=== PATIENT | female | born 1980 | race Caucasian/White ===

== ENCOUNTER 2019-11-09 15:52 | Outpatient (CLI) | payer OTHER, SELFPAY ==
--- NOTE | ~2019-11-09 | CT_ITS ---
EXAMINATION: CT sinus wo con DATE: 11/09/2019 16:33 INDICATION: Chronic congestion, chronic sinusitis TECHNIQUE: Computed tomography (CT) of the paranasal sinuses was performed without contrast. Iterativ e reconstruction technique was employed. Exam dose: 253.85 mGy-cm total exam DLP. COMPARISON: None FINDINGS: Leftward deviation of the nasal septum. Interlamellar cell and jas bullosa of both middle nasal turbinates. The right middle and inferior nasal turbinates are asymmetrically prominent in size. The ostiomeatal units are patent bilaterally. The paranasal sinuses are normally developed and aerated. No mucoperiosteal thickening, mucous retent ion cyst or polyp or soft tissue mass lesion is evident. The mastoid air cells are normally developed and aerated bilaterally. Middle and inner ear apparatus appear normal bilaterally. IMPRESSION: Leftward deviation of nasal septum Interlamellar cell and jas bullosa of both middle nasal turbinates Asymmetric soft tissue swelling of the right middle and inferior nasal turbinates Patent ostiomeatal units, paranasal sinuses, mastoid air cells Reviewed, dictated and finalized at [facility]. Reviewed, dictated and finalized at [facility]. IMPRESSION: Leftward deviation of nasal septum Interlamellar cell and jas bullosa of both middle nasal turbinates Asymmetric soft tissue swelling of the right middle and inferior nasal turbinat es Patent ostiomeatal units, paranasal sinuses, mastoid air cells
== END 2019-11-09 15:53 | disposition home or self-care (01) ==
LOC: ANHIMG 15:53
PROVIDERS: Visit Provider Otolaryngology
DX: J32.9 Chronic sinusitis, unspecified (principal); J34.2 Deviated nasal septum; J34.89 Other specified disorders of nose and nasal sinuses; J34.3 Hypertrophy of nasal turbinates
CPT/HCPCS: 70486

== ENCOUNTER 2023-03-12 08:27 | Emergency (ER) | payer OTHER, SELFPAY ==
--- NOTE | ~2023-03-12 | XR_ITS ---
XR lumbar spine 2-3V 03/12/2023 08:53 Indication: Low back pain for 5 days Procedure: 3 views lumbar spine Comparison: 07/29/2015 Findings: Vertebral body heights are maintained. There is mild disc narrowing and facet hypertrophy a t L5-S1. No fracture or traumatic malalignment. Pedicles intact. Sacral foramen are symmetric. Impression: 1: No acute abnormality of the lumbar spine. 2: Mild lumbar spondylosis. Reviewed, dictated and finalized at [facility]. ERCIAL DECORATOR Impression: 1: No acute abnormality of the lumbar spine. 2: Mild lumbar spondylosis.
[2023-03-12 08:35] VITALS: BP 134/75; PULSE 86; RESP 16; TEMP 36.1; O2SAT 97
--- NOTE | 2023-03-12 08:35 | ED.BACK ---
HPI - Back Pain/Injury General Chief Complaint: Back Pain/Injury Stated Complaint: Low Back Pain Time Seen by Provider: 03/12/23 08:35 Source: patient Mode of arrival: ambulatory Limitations: no limitations History of Present Illness HPI Narrative: 42 yo F presentes with c/o low back pain for 5 to 6 days. Taking ibuprofen and tylenol with relief of symptoms. Denies injury. Works from home and sits 8 hour days. reports tighening and spasm center of lower back. no urinary symptoms. having normal BMs. ambulatory With steady gait. All systems reviewed and negative except as noted above. Related Data Allergies Allergy/AdvReac Type Severity Reaction Status Date / Time butalamine Allergy Intermediate Unknown Verified 03/12/23 08:32 Review of Systems Review of Systems: CONSTITUTIONAL: Denies fever, chills, or sweats. EYES: Denies visual changes, redness, or discharge. ENT: Denies rhinorrhea, congestion, sore throat, or otalgia. CARDIOVASCULAR: Denies chest pain, palpitations, or edema. RESPIRATORY: Denies cough or dyspnea. GASTROINTESTINAL: Denies abdominal pain, nausea, vomiting, or diarrhea. GENITOURINARY: Denies dysuria or hematuria. SKIN: Denies rash or itching. MUSCULOSKELETAL: Reports low back pain. Denies joint pain, or myalgia. NEUROLOGIC: Denies headache, numbness, or weakness. PSYCHIATRIC: Denies anxiety or depression. All other systems reviewed are negative, except as documented in HPI. PMFSH Comments At time of signature, agree with nursing past medical, surgical, social and family history. There is no relevant family history pertinent to the presenting complaint. Exam Narrative: GENERAL: This is a well-nourished, well-developed patient, in no apparent distress. HEAD: normocephalic, atraumatic. EYES: PERRL. Sclera clear/white. Vision is grossly intact. EARS: External ears normal NOSE: External nose normal NECK: Neck supple, non-tender without lymphadenopathy, masses or thyromegaly. CARDIOVASCULAR: Regular rate and rhythm without murmurs, gallops, or rubs. RESPIRATORY: Clear to auscultation. Breath sounds equal bilaterally. No wheezes, rales, or rhonchi. SKIN: warm, Dry, intact with no suspicious lesions or rash, good texture and turgor. NEURO: awake, alert, and oriented to person, place and time. There were no obvious focal neurologic abnormalities. EXTREMITIES: No joint tenderness, effusion, or edema noted. BACK: muscular tenderness lumbar aspect with tenderness to L 4, L5. Negative straight leg raise. Lower extremity strength 5/5 bilaterally. Course Course Level of Care: Express Care Visit Vital Signs Vital signs: Vital Signs Temperature 36.1 C L 03/12/23 08:35 Pulse Rate 86 03/12/23 08:35 Respiratory Rate 16 03/12/23 08:35 Blood Pressure 134/75 03/12/23 08:35 Pulse Oximetry 97 03/12/23 08:35 Oxygen Delivery Room Air 03/12/23 08:35 Temperature 36.1 C L 03/12/23 08:35 Pulse Rate 86 03/12/23 08:35 Respiratory Rate 16 03/12/23 08:35 Blood Pressure 134/75 03/12/23 08:35 Pulse Oximetry 97 03/12/23 08:35 Oxygen Delivery Room Air 03/12/23 08:35 Reviewed MDM - Back Pain/Injury MDM Narrative Medical decision making narrative: discussed x-ray results with patient. No neuro deficits at time of discharge. Will treat with prednisone, muscle relaxant. Recommend continue to take ibuprofen or Tylenol. Patient given low back stretches. Recommend she increase physical activity as she sits 8 hours a day working from home. Patient is aware of diagnosis, understands and agrees to treatment plan. Anticipatory guidance given. Patient agrees to follow-up as directed and is aware of reasons to seek care at the emergency department. Portions of this record may have been created with voice recognition software Differential Diagnosis Differential diagnosis: Likely strain of lumbar region Imaging Data My impression: agree with radiologist Radio
[2023-03-12] MEDS: KETOROLAC (*BKC) 60 MG/2 ML VIAL IM (09:06)
== END 2023-03-12 09:17 | disposition home or self-care (01) ==
PROVIDERS: Emergency Provider Nurse Practitioner Family
DX: S39.012A Strain of muscle, fascia and tendon of lower back, initial encounter (principal); X58.XXXA Exposure to other specified factors, initial encounter
CPT/HCPCS: 72100; 96372; 99213; G0463; J1885